=== PATIENT | male | born 1965 | race Caucasian/White ===

== ENCOUNTER 2017-01-13 16:05 | Observation (INO) | payer BC ==
--- NOTE | 2017-01-13 16:57 | CPEKG ---
Heart Rate: 78 RR Interval: 769 QRSD Interval: 88 QT Interval: 372 QTC Interval: 424 QRS Mccoy: 29 T Wave Mccoy: 21 EKG Severity - ABNORMAL ECG - EKG Impression: ATRIAL FIBRILLATION, V-RATE 66-94 Electronically Signed By: Abraham Koenig 13-Jan-2017 23:03:41
--- NOTE | 2017-01-13 16:58 | EDPHY ---
H & P Stated Complaint: SOB/LIGHTHEADED IRRIEGULAR HR Time Seen by Provider: 01/13/17 16:57 - Personal History Current Tetanus/Diphtheria Vaccine: Yes - Medical/Surgical History Hx Asthma: No Hx Chronic Respiratory Disease: No Hx Diabetes: No Hx Cardiac Disease: No Hx Renal Disease: No Hx Cirrhosis: No Hx Alcoholism: No Hx HIV/AIDS: No Hx Splenectomy or Spleen Trauma: No Other PMH: TONSILLECTOMY - Social History Smoking Status: Never smoked Constitutional: Initial Vital Signs Temperature (C) 36.7 C 01/13/17 16:19 Heart Rate 82 01/13/17 16:19 Respiratory Rate 20 01/13/17 16:19 Blood Pressure 125/80 H 01/13/17 16:19 O2 Sat (%) 97 01/13/17 16:19 O2 Delivery Mode Room Air Allergies/Adverse Reactions: No Known Allergies Allergy (Unverified 01/13/17 16:19) Home Medications: Medication Instructions Recorded NK [No Known Home Meds] 01/13/17 Medical Decision Making ED Course/Re-evaluation: CHIEF COMPLAINT: Irregular heart rhythm. HISTORY OF PRESENT ILLNESS: This patient is a 51 year old male arriving with his brother complaining of an irregular heart rhythm onset earlier today. He is visiting from [place], and arrived Thursday afternoon. He has been staying at [address]. He states he comes out to [place] to work on his brother's house in [place] for 3-4 days at a time fairly often. He endorses having had a strange feeling in his stomach on previous visits, and he threw up in the middle of the night last night. His heart feels like it is "bubbling" when he feels this sensation, and he has associated fatigued. He has had similar symptoms before on the [facility], which have often seemed stress related. Usually his symptoms do not last more than a few hours. He denies headache, chest pain, shortness of breath, or other associated symptoms. REVIEW OF SYSTEMS: A 10 point review of systems was performed and is negative with the exception of the elements mentioned in the history of present illness. PHYSICAL EXAM: HR, BP, O2 Sat, RR. Temp noted General Appearance: Alert, well hydrated, appropriate, and non-toxic appearing. Head: Atraumatic without scalp tenderness or obvious injury Eyes: Pupils equal, round, reactive to light and accommodation, EOMI, no trauma , no injection. Ears: Clear bilaterally, no perforation, normal landmarks Nose: Atraumatic, no rhinorrhea, clear. Throat: There is no erythema or exudates, no lesions, normal tonsils, mucus membranes moist. Neck: Supple, 2+ carotid upstroke, nontender, no lymphadenopathy. Respiratory: No retractions, no distress, no wheezes, and no accessory muscle use. Lungs are clear to auscultation bilaterally. Cardiovascular: Regular rate and rhythm, no murmurs, rubs, or gallops. Bilateral carotid, radial, dorsalis pedis, and posterior tibial pulses intact. Good capillary refill all extremities. Gastrointestinal: Abdomen is soft, nontender, non-distended, no masses, no rebound, no guarding, no peritoneal signs. Musculoskeletal: Normal active ROM of all extremities, atraumatic. Neurological: Alert, appropriate, and interactive. Nonfocal neuro exam. Skin: No rashes, good turgor, no nodules on palpation. Past medical history: Denies Past surgical history: Tonsillectomy (7 y/o) Family history: One brother has had history of myocardial infarction. Social history: Brother at bedside. Has six brothers. DIAGNOSTICS/PROCEDURES/CRITICAL CARE TIME: 16:55 The 12 lead EKG was interpreted by myself. See hard copy and/or "tracemaster" electronic copy for interpretation. Atrial fibrillation, ventricular rate 78. 20:40 The 12 lead EKG was interpreted by myself. See hard copy and/or "tracemaster" electronic copy for interpretation. Sinus rhythm, rate 84. DIFFERENTIAL DIAGNOSIS: The differential diagnosis for the patient's narrow complex tachycardia included but was not limited to various causes of sinus tachycardia such as dehydration and medicines, SVT, atrial flutter, atrial fibrillation, pulmonary causes. MEDICAL DECISION MAKIN51 year old male presents with new-onset atrial fibrillation. He admits to feeling poorly since arrival in [place] Thursday, four days ago. Plan to admit for management of atrial fibrillation. As the patient has likely been in this rhythm for some time and he lives out of state, I do not recommend cardioversion at this time. Plan for labs including CBC, chemistries, BNP, Troponin. 18:[address] Yates, corporate consultant. Plan to administer 80mg subcutaneous Lovenox. 20:41 Patient is in sinus rhythm. Plan to proceed with admission for continued evaluation. - Data Points Laboratory Results: Laboratory Results 01/13/17 18:35 01/13/17 17:05 01/13/17 01/13/17 01/13/17 18:35 17:05 17:05 WBC 7.59 10^3/uL 10^3/uL TNP (3.80-9.50) RBC 4.42 10^6/uL 10^6/uL TNP (4.40-6.38) Hgb 14.9 g/dL g/dL TNP (13.7-17.5) Hct 42.8 % % TNP (40.0-51.0) MCV 96.8 fL fL TNP (81.5-99.8) MCH 33.7 pg pg TNP (27.9-34.1) MCHC 34.8 g/dL g/dL TNP (32.4-36.7) RDW 12.0 % % TNP (11.5-15.2) Plt Count 222 10^3/uL 10^3/uL TNP (150-400) MPV 11.1 fL fL TNP (8.7-11.7) Neut % (Auto) 50.8 % % TNP (39.3-74.2) Lymph % (Auto) 32.8 % % TNP (15.0-45.0) [place] % (Auto) 11.9 % % TNP (4.5-13.0) Eos % (Auto) 3.3 % % TNP (0.6-7.6) Baso % (Auto) 1.1 % % TNP (0.3-1.7) Nucleat RBC Rel Count 0.0 % % TNP (0.0-0.2) Absolute Neuts (auto) 3.86 10^3/uL 10^3/uL TNP (1.70-6.50) Absolute Lymphs (auto) 2.49 10^3/uL 10^3/uL TNP (1.00-3.00) Absolute Monos (auto) 0.90 10^3/uL H 10^3/uL TNP (0.30-0.80) Absolute Eos (auto) 0.25 10^3/uL 10^3/uL TNP (0.03-0.40) Absolute Basos (auto) 0.08 10^3/uL 10^3/uL TNP (0.02-0.10) Absolute Nucleated RBC 0.00 10^3/uL 10^3/uL TNP (0-0.01) Immature Gran % 0.1 % % TNP (0.0-1.1) Immature Gran # 0.01 10^3/uL 10^3/uL TNP (0.00-0.10) Sodium 139 mEq/L mEq/L (134-144) Potassium 4.3 mEq/L mEq/L (3.5-5.2) Chloride 101 mEq/L mEq/L (97-110) Carbon Dioxide 26 mEq/l mEq/l (22-31) Anion Gap 12 mEq/L mEq/L (8-16) BUN 15 mg/dL mg/dL (7-23) Creatinine 0.9 mg/dL mg/dL (0.7-1.3) Estimated GFR > 60 Glucose 95 mg/dL mg/dL (70-100) Calcium 10.0 mg/dL mg/dL (8.5-10.4) Total Bilirubin 0.8 mg/dL mg/dL (0.1-1.4) AST 35 IU/L IU/L (17-59) ALT 42 IU/L IU/L (21-72) Alkaline Phosphatase 56 IU/L IU/L (38-126) Troponin I < 0.012 ng/mL ng/mL (0.000-0.034) NT-Pro-B Natriuret Pep 1390 pg/mL H pg/mL (0-125) Total Protein 8.0 g/dL g/dL (6.3-8.2) Albumin 4.9 g/dL g/dL (3.5-5.0) Medications Given: Discontinued Medications Enoxaparin Sodium (Lovenox) 80 mg SC EDNOW ONE Stop: 01/13/17 18:58 Last Admin: 01/13/17 20:46 Dose: 80 mg Departure - Departure Disposition: [facility] Acute Clinical Impression: Atrial fibrillation Qualifiers: Atrial fibrillation type: unspecified Qualified Code(s): I48.91 - Unspecified atrial fibrillation Condition: Fair Report Scribed for: Abraham Koenig Report Scribed by: Donna Rao Date of Report: 01/13/17 Time of Report: 19:12
[2017-01-13 17:55] LABS: ALANINE AMINOTRANSFERASE 42 IU/L (21-72); ALBUMIN 4.9 g/dL (3.5-5.0); ALKALINE PHOSPHATASE 56 IU/L (38-126); ANION GAP 12 mEq/L (8-16); ASPARTATE AMINOTRANSFERASE 35 IU/L (17-59); BILIRUBIN,TOTAL 0.8 mg/dL (0.1-1.4); CARBON DIOXIDE 26 mEq/l (22-31); CHLORIDE 101 mEq/L (97-110); CREATININE 0.9 mg/dL (0.7-1.3); GLOMERULAR FILTRATION RATE > 60; GLUCOSE 95 mg/dL (70-100); POTASSIUM 4.3 mEq/L (3.5-5.2); SODIUM 139 mEq/L (134-144)
[2017-01-13 18:07] LABS: TROPONIN I < 0.012 ng/mL (0.000-0.034)
[2017-01-13 18:46] LABS: % IMMATURE GRANULYOCYTES 0.1 % (0.0-1.1); ABSOLUTE IMMATURE GRANULOCYTES 0.01 10^3/uL (0.00-0.10); ADD DIFF? NO; ADD MORPH? NO; ADD SCAN? NO; ATYPICAL LYMPHOCYTE FLAG 0 (0-99); FRAGMENT RBC FLAG 0 (0-99); HEMATOCRIT 42.8 % (40.0-51.0); HEMOGLOBIN 14.9 g/dL (13.7-17.5); LEFT SHIFT FLG 0 (0-99); LIPEMIA HEMOLYSIS FLAG 90 (0-99); MEAN CELL HEMOGLOBIN 33.7 pg (27.9-34.1); MEAN CELL HEMOGLOBIN CONCENTR. 34.8 g/dL (32.4-36.7); MEAN CELL VOLUME 96.8 fL (81.5-99.8); MEAN PLATELET VOLUME 11.1 fL (8.7-11.7); PLATELET CLUMPS FLAG 0 (0-99); PLATELET COUNT 222 10^3/uL (150-400); RED BLOOD CELL COUNT 4.42 10^6/uL (4.40-6.38)
[2017-01-13] MEDS ORDERED: ENOXAPARIN 80 MG/0.8 ML SYR SC ONE (18:57)
--- NOTE | 2017-01-13 20:42 | CPEKG ---
Heart Rate: 84 RR Interval: 714 P-R Interval: 148 QRSD Interval: 96 QT Interval: 372 QTC Interval: 440 P Dunn: 77 QRS Dunn: 19 T Wave Dunn: 29 EKG Severity - NORMAL ECG - EKG Impression: SINUS RHYTHM Electronically Signed By: Abraham Koenig 13-Jan-2017 23:03:41
[2017-01-14] MEDS ORDERED: ONDANSETRON 4 MG/2 ML VIAL IVP PRN (01:22)
[2017-01-14] MEDS ORDERED: ACETAMINOPHEN 325 MG TAB PO PRN (01:22)
[2017-01-14] MEDS ORDERED: ONDANSETRON DISINTEGRATING 4 MG TAB PO PRN (01:22)
--- NOTE | 2017-01-14 04:27 | PDGENHP ---
History and Physical - Chief Complaint Palpitations - History of Present Illness 51 yo M with no PMHx on no medications presents with 1 day of palpitations and fatigue. Patient states that he has been having this problem on and off for several years but has never sought medical care. He is visiting family from [place] , and usually gets these symptoms when he comes to altitude, and especially when he drinks alcohol like he did last night. He denies chest pain or shortness of breath. Patient's initial ECG was in rate controlled afib. By the time of my evaluation, patient has spontaneously converted to NSR. History Information - Allergies/Home Medication List Allergies/Adverse Reactions: No Known Allergies Allergy (Unverified 01/13/17 16:19) Home Medications: NK [No Known Home Meds] 01/13/17 [Last Taken Unknown] I have personally reviewed and updated: family history, medical history - Past Medical History no pertinent PMH - Surgical History Reports: no pertinent surgical hx - Family History Positive for: CAD - Social History Smoking Status: Never smoked Alcohol Use: Other (2-3 beers nightly) Drug Use: None Review of Systems Review of Systems: ROS: 10pt was reviewed & negative except for what was stated in HPI & below Physical Exam Physical Exam: Temp Pulse Resp BP Pulse Ox 36.6 C 78 14 118/68 95 01/14/17 03:49 01/14/17 03:49 01/14/17 03:49 01/14/17 03:49 01/14/17 03:49 Constitutional: no apparent distress, appears nourished Eyes: PERRL, EOMI Ears, Nose, Mouth, Throat: moist mucous membranes, hearing normal Cardiovascular: regular rate and rhythym, no murmur, rub, or gallop Respiratory: no respiratory distress, clear to auscultation Gastrointestinal: normoactive bowel sounds, soft, non-tender abdomen Skin: warm, normal color Musculoskeletal: full muscle strength, no muscle tenderness Neurologic: AAOx3, CN II-XII Intact Psychiatric: interacting appropriately, not anxious Lab Data & Imaging Review 01/13/17 18:35 01/13/17 17:05 WBC 7.59 10^3/uL (3.80-9.50) 01/13/17 18:35 RBC 4.42 10^6/uL (4.40-6.38) 01/13/17 18:35 Hgb 14.9 g/dL (13.7-17.5) 01/13/17 18:35 Hct 42.8 % (40.0-51.0) 01/13/17 18:35 MCV 96.8 fL (81.5-99.8) 01/13/17 18:35 MCH 33.7 pg (27.9-34.1) 01/13/17 18:35 MCHC 34.8 g/dL (32.4-36.7) 01/13/17 18:35 RDW 12.0 % (11.5-15.2) 01/13/17 18:35 Plt Count 222 10^3/uL (150-400) 01/13/17 18:35 MPV 11.1 fL (8.7-11.7) 01/13/17 18:35 Neut % (Auto) 50.8 % (39.3-74.2) 01/13/17 18:35 Lymph % (Auto) 32.8 % (15.0-45.0) 01/13/17 18:35 [place] % (Auto) 11.9 % (4.5-13.0) 01/13/17 18:35 Eos % (Auto) 3.3 % (0.6-7.6) 01/13/17 18:35 Baso % (Auto) 1.1 % (0.3-1.7) 01/13/17 18:35 Nucleat RBC Rel Count 0.0 % (0.0-0.2) 01/13/17 18:35 Absolute Neuts (auto) 3.86 10^3/uL (1.70-6.50) 01/13/17 18:35 Absolute Lymphs (auto) 2.49 10^3/uL (1.00-3.00) 01/13/17 18:35 Absolute Monos (auto) 0.90 10^3/uL (0.30-0.80) H 01/13/17 18:35 Absolute Eos (auto) 0.25 10^3/uL (0.03-0.40) 01/13/17 18:35 Absolute Basos (auto) 0.08 10^3/uL (0.02-0.10) 01/13/17 18:35 Absolute Nucleated RBC 0.00 10^3/uL (0-0.01) 01/13/17 18:35 Immature Gran % 0.1 % (0.0-1.1) 01/13/17 18:35 Immature Gran # 0.01 10^3/uL (0.00-0.10) 01/13/17 18:35 Sodium 139 mEq/L (134-144) 01/13/17 17:05 Potassium 4.3 mEq/L (3.5-5.2) 01/13/17 17:05 Chloride 101 mEq/L (97-110) 01/13/17 17:05 Carbon Dioxide 26 mEq/l (22-31) 01/13/17 17:05 Anion Gap 12 mEq/L (8-16) 01/13/17 17:05 BUN 15 mg/dL (7-23) 01/13/17 17:05 Creatinine 0.9 mg/dL (0.7-1.3) 01/13/17 17:05 Estimated GFR > 60 01/13/17 17:05 Glucose 95 mg/dL (70-100) 01/13/17 17:05 Calcium 10.0 mg/dL (8.5-10.4) 01/13/17 17:05 Total Bilirubin 0.8 mg/dL (0.1-1.4) 01/13/17 17:05 AST 35 IU/L (17-59) 01/13/17 17:05 ALT 42 IU/L (21-72) 01/13/17 17:05 Alkaline Phosphatase 56 IU/L (38-126) 01/13/17 17:05 Troponin I < 0.012 ng/mL (0.000-0.034) 01/13/17 17:05 NT-Pro-B Natriuret Pep 1390 pg/mL (0-125) H 01/13/17 17:05 Total Protein 8.0 g/dL (6.3-8.2) 01/13/17 17:05 Albumin 4.9 g/dL (3.5-5.0) 01/13/17 17:05 Visualized and Interpreted EKG results: Yes EKG additional interpertation: Initial ECG @ 1600 in Afib with HR in 70's. Follow up ECG @ 2000 in [address]R with no ST changes. Assessment & Plan Assessment: 51 yo M presents with transient atrial fibrillation. Plan: 1. Atrial fibrillation - Patient with symptoms since morning prior to admission and Afib noted on 1600 ECG. However, spontaneously converted to NSR at 1999. Suspect triggered by altitude and alcohol intake, no signs of symptoms to suggest acute pathology such as ACS or PE. Per history sounds like patient has had this problem intermittently for several years, although he has never sought medical care and therefore has not received a prior diagnosis. [id number] of 0 so no indication for anticoagulation. - S/p Lovenox in ED under instruction of Cardiology given when patient was in Afib - Will monitor on telemetry overnight and check TSH - Will consult cardiology to discuss possibility of antiarrhythmic, although the patient would prefer to stay off medication if possible - Will hold off on ordering TTE for now Diet - NPO in case he goes back in to Afib and Cardiology wants to cardiovert ( This was original plan) Code - Full Ppx - S/p Lovenox Dispo - Admit for observation
[2017-01-14 05:45] LABS: ANION GAP 11 mEq/L (8-16); CALCIUM 9.2 mg/dL (8.5-10.4); CARBON DIOXIDE 24 mEq/l (22-31); CHLORIDE 104 mEq/L (97-110); GLOMERULAR FILTRATION RATE > 60; GLUCOSE 91 mg/dL (70-100); MAGNESIUM 2.1 mg/dL (1.6-2.3); POTASSIUM 3.9 mEq/L (3.5-5.2); SODIUM 139 mEq/L (134-144)
[2017-01-14 07:37] VITALS: RESP 16; TEMP 97.7; O2SAT 97
[2017-01-14] MEDS ORDERED: ASPIRIN EC 325 MG TAB PO SCH (10:15)
[2017-01-14] MEDS ORDERED: METOPROLOL TARTRATE 25 MG TAB PO SCH (10:15)
[2017-01-14 11:20] VITALS: BP 116/79; PULSE 95
--- NOTE | 2017-01-14 12:22 | GCON ---
[f rep st] CONSULTATION CARDIOLOGY CONSULTATION REASON FOR CONSULTATION: New onset of atrial fibrillation. HISTORY OF PRESENT ILLNESS: The patient is a 51-year-old male reporting no significant cardiac history. He is resides in [place]. He is currently out in [place] helping build a vacation home up in [place]. He reports he had been in his normal state of health. He does admit that he has been binge drinking mildly while out here working on his house, and reporting that yesterday morning, waking with palpitations, shortness of breath, and significant fatigue. He reports this is the worst. He does admit that when he is out in [place], he has had similar symptoms in the past over the last 3 years, and he reports he has been noticing occasional episode of palpitations about 2-3 times a month when at home in [place], but usually subsides throughout the day. He denies any lightheadedness, near-syncope, or syncopal events. Denies any chest pressure or pain. Due to his significant fatigue symptoms at this event, he decided to come in to be further evaluated, and presented at [facility] Emergency Department. Upon arrival, it was noted that he an electrocardiogram showed that he was an atrial fibrillation , with no acute ST or T-wave abnormalities. His heart rate was rate control at 78 beats per minute. Initial laboratory studies did note a mildly elevated BNP of 1390, a troponin of less than 0.012. Dr. Koenig, who is the emergency department attending, did call Dr. Yates of our service, who recommended that the patient did receive Lovenox, but no A-V bharath agent due to his heart rate. By 8:40, the patient did self-convert into sinus rhythm. The patient was admitted to the hospital for further observation. Upon arrival, he has been on the telemetry floor, and since that time he has been per continuous cardiac monitoring. He has been in sinus rhythm, with no significant arrhythmias or pauses noted. Occasional PACs and PVCs. He reports no episodes of chest pain or shortness of breath overnight. His vital signs have been stable. Reporting no history of chest pressure or pain. Denies shortness of breath. The patient does admit over the last few days, while working on his house, he has not been keeping up with his hydration, and he is also reporting that he has increased his alcohol intake, significantly, the night before episodes started to happen. He denies any recent fevers, chills, or night sweats. Reporting really no significant medical past history. The patient's cardiac risk factors include age. He is uncertain about his cholesterol levels, denies any history of hypertension, and no family history of coronary artery disease at an early onset , and denies any family history of sudden cardiac . PAST MEDICAL HISTORY: The patient reports no significant past medical history. Does report he has not seen a physician in numerous years. PAST SURGICAL HISTORY: Denies any significant past surgery history. FAMILY HISTORY: The patient reports a paternal grandmother with a history of CAD in her late 60s. SOCIAL HISTORY: The patient resides in [place]. 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 He is , he has 2 children. His just underwent bilateral mastectomy, and has just finished chemo and radiation. He denies any illicit drug use. Does admit on a nightly basis usually 2 alcoholic beverages, and does admit that while out here of vacation he has had a significant amount more of alcohol. ALLERGIES: The patient has no known allergies. MEDICATIONS: At home, the patient reports occasional use of Janelle-D for seasonal allergies; has had not used any in the last month or so. REVIEW OF SYSTEMS: A 10-point review of systems was done on this patient. All negative, except as mentioned above. PHYSICAL EXAMINATION: GENERAL APPEARANCE: A medium built, well-groomed, male. He is alert and oriented to person, place, time, and situation. Appears to be under no acute distress. CURRENT VITAL SIGNS: Blood pressure of 104/73, heart rate of 77, saturation 97% on room air, temperature of 36.5 degrees Celsius. HEENT: Head is normocephalic. Lips and tongue are pink and moist with no signs of cyanosis. Conjunctivae are pink. NECK: Trachea is midline. +2 carotid pulses bilaterally. No auscultated bruits. No jugular vein distention. RESPIRATORY: Lungs are clear to auscultation. No rhonchi, rales or wheezes. No accessory muscle use. No intercostal muscle retraction noted. CARDIAC: Regular rate, regular rhythm, S1, S2, no S3, S4, gallops, rubs or murmur noted. ABDOMEN: Soft, nontender, bowel sounds x4 quadrants. No organomegaly. No palpable masses. SKIN: [place], warm, dry, no cyanosis, no clubbing, no peripheral edema. VASCULAR: +2 carotids bilateral, + 2 radials bilateral, +2 dorsal pedal and posterior tibial pulses bilateral. LABORATORY STUDIES: Laboratory studies drawn on admission showed a WBC of 7.59 , a hemoglobin of 14.9, a hematocrit of 42.8, platelet count 222 is noted. Total bilirubin of 0.8, AST 35, ALT 42, alkaline phosphate 56. Initial troponin less than 0.012. ProBNP was 1392, total protein 8.0, albumin 4.9. This morning's labs showed sodium of 139, potassium 3.9, chloride 104, CO2 24, BUN 19, creatinine 1.0, glucose 91, calcium 9.2, magnesium 2.1. TSH was 5.320. Currently, 2nd troponin level is pending. Admission electrocardiogram, as mentioned above. A repeated electrocardiogram was done on 01/13 at 2038 hours showing sinus rhythm, normal axis, no ST or T- wave abnormalities suggestive of ischemia. Preliminary echocardiogram done this morning showing normal LV systolic function with no wall motion abnormalities. No significant valvular heart disease. Normal chamber sizes. ASSESSMENT AND PLAN: 1. Paroxysmal atrial fibrillation: This is the patient's 1st documented episode of paroxysmal atrial fibrillation, with symptoms of fatigue, shortness of breath. Denies any chest pressure or pain. Echocardiogram showing no wall motion abnormalities, normal ejection fraction, normal chamber sizes. This happened in the setting when he was at significant altitude, which he lives at close to sea [place], and potential dehydration and significant alcohol intake. The patient also reports that he has occasional palpitations at home that are happening 1-2 times a week. He is currently in sinus rhythm. I have suggested that he start a low-dose beta-chino of metoprolol tartrate at 12.5 mg p.o. b.i.d. I have encouraged him to increase his hydration, decrease his alcohol intake, and avoid binge drinking. We have also discussed that the patient does admit that he snores significantly, and I do think it would be valid as an outpatient that the patient be further evaluated for possible sleep apnea. His TSH level is noted to be mildly high, has had normal electrolyte and renal function and no anemia. Depending on the result of his 2nd troponin level, I do not think he will need to undergo stress testing since he has had no signs symptoms suggestive of ischemia, negative troponins, and normal LV wall motion. I have encouraged him to establish a primary care in [place], and follow up with Cardiology within the next few weeks. I have also asked that the echocardiogram technicians provide the patient with a CD of his echocardiogram to take home with him. As for anticoagulation, the patient was noted to have a CHADS-VASc score of 0. I would recommend that he take a full-strength aspirin 325 mg on a daily basis. 2. Elevated BNP: Noted to have an elevated BNP on arrival. The patient denies any shortness of breath at this time since converting back to sinus rhythm, probably due to his atrial fibrillation. He denies any symptoms suggestive of pulmonary embolism. Again, will plan on treating his atrial fibrillation as mentioned above. 3. Elevated TSH: The TSH was noted to be mildly high, and I have recommended that he follow up with a primary care provider whence going home for further evaluation. I have discussed my findings with Dr. Cortes and Dr. Stephens of hospitalist services. Thank you for this consultation. /[id number]/MODL MTDD
--- NOTE | 2017-01-14 12:23 | ASMTCMCOM ---
CM Note CM Note Notes: Reviewed chart and spoke w/RN. Pt will dc home independantly when med stable. Date Signed: 01/14/2017 12:22 PM Electronically Signed By:Haylie Hector RN
--- NOTE | 2017-01-14 13:26 | ECHO ---
[id number] + + [address] : : [place] [address] : : [phone] + + Adult Echocardiographic Report + ------+ :Name: GAIL GARRETT LStudy Date: 01/14/2017 09:06 AM : : Hospital Admission Number: [id number] Barbara n: 204: :: 1965 Gender: Male : :Age: 51 yrs Race: WH : :Reason For Study: Atrial Fibrillation : + ------+ MMode/2D Measurements & Calculations IVSd: 1.2 cm LVIDd: 4.3 cm EDV(Teich): Ao root diam: 83.6 ml 3.2 cm LA dimension: 3.8 cm LVLd ap4: 7.8 cm SV(MOD-sp4): EDV(MOD-sp4): 52.0 ml 75.0 ml LVLs ap4: 6.6 cm ESV(MOD-sp4): 23.0 ml EF(MOD-sp4): 69.3 % Normal Measurement Values: + + :LVIDd (3.5-5.7cm) IVSd (0.6-1.1cm) LVPWd (0.6-1.1cm) Aortic Root (2.0-3.7cm)Left Atrium (1.5-4.0cm): :LV Vol(d) (76-115ml) LV Vol(s) (29-48ml) Ejec Fraction (50-65%)PV Juan Diego (0.6- 1.2m/s) TV Juan Diego (0.4-1.0m/s) : :MV E [place] (0.8-1.0m/s)MV A [place] (0.3-1.0m/s)LVOT [place] (0.7-1.2m/s) Asc Ao Juan Diego ( 0.9-1.8m/s) : + + Doppler Measurements & Calculations MV E max juan diego: 48.4 cm/sec Ao V2 max: 119.4 cm/sec MV A max juan diego: 44.9 cm/sec Ao max P.7 mmHg MV E/A: 1.1 Left Ventricle The left ventricle is normal in size. There is normal left ventricular wall thickness. Left ventricular systolic function is normal. Ejection Fraction = 60-65%. No regional wall motion abnormalities noted. Right Ventricle The right ventricle is normal in size and function. Atria The left atrial size is normal. Right atrial size is normal. The interatrial septum is intact with no evidence for an atrial septal defect. Mitral Valve The mitral valve is normal in structure and function. There is no evidence of mitral valve prolapse. There is no mitral valve stenosis. There is mild mitral regurgitation. Tricuspid Valve Normal tricuspid valve. There is trace tricuspid regurgitation. Aortic Valve The aortic valve is trileaflet. The aortic valve opens well. There is no aortic stenosis. Trace aortic regurgitation. Pulmonic Valve The pulmonic valve is normal in structure and function. There is no pulmonic valvular regurgitation. Great Vessels The aortic root is normal size. Pericardium/Pleural There is no pericardial effusion. Conclusion A complete two-dimensional transthoracic echocardiogram was performed (2D, M-mode, Doppler and color flow Doppler). Left ventricular systolic function is normal. Ejection Fraction = 60-65%. There is mild mitral regurgitation. There is trace tricuspid regurgitation. Trace aortic regurgitation. Final Reading Physician: Hardy Sainz signed on 01/14/2017 01:26 PM Ordering Physician: Elias Guerra Performed By: Ruchi Melvin RDCS
--- NOTE | 2017-01-14 14:59 | ASDISCHSUM ---
Discharge Information Plan Status:Home with No Needs Medically Cleared to Leave: Discharge Date:01/14/2017 12:54 PM CM D/C Disposition: ADT D/C Disposition:Home, Routine, Self-Care Projected Discharge Date:01/14/2017 12:54 PM Transportation at D/C: Discharge Delay Reason: Follow-Up Date:01/14/2017 12:54 PM Discharge Slot: Final Diagnosis: Placement Information Patient Contact Information Contact Name:JOE Relationship: Address:[address] Work Phone: City:[place] Alternate Phone: State/Zip Code:[place] [address] Email: Financial Information Financial Class:HMO and PPO Plans Primary Plan Desc: OUT OF STATE PPO Primary Plan Number:[id number] Secondary Plan Desc: Secondary Plan Number: Assessment Information BC CM Progress Note CM Note CM Note Notes: Reviewed chart and spoke w/RN. Pt will dc home independantly when med stable. Date Signed: 01/14/2017 12:22 PM Electronically Signed By:Haylie Hector RN Intervention Information
--- NOTE | 2017-01-15 03:33 | GDS ---
[f rep st] DISCHARGE SUMMARY DISCHARGE DIAGNOSIS: Atrial fibrillation. HISTORY OF PRESENT ILLNESS: A 51-year-old male with no past medical history, on no medications, presented with 1 day of palpitations and fatigue. He says he has had similar symptoms on and off for several years, but never sought medical care. He is visiting here from [place], and usually gets these symptoms more prominently when he comes to altitude. He also notes especially when he drinks alcohol like he did night prior. He denies chest pain or shortness of breath. His initial EKG showed rate controlled atrial fibrillation. By the time of hospitalist evaluation, he had converted to normal sinus rhythm. HOSPITAL COURSE: 1. Paroxysmal atrial fibrillation: This is his 1st documented episode with symptoms. He had an unremarkable echocardiogram. TSH was mildly high. He had negative troponins. He will be discharged on metoprolol 12.5 mg twice daily and a full-dose aspirin with a CHADS2-VASc score 0. Highly recommended that he get a primary care physician in [place] along with a spd manager. Elevated BNP 1390, but no evidence of volume overload. Suspect this was due to his atrial fibrillation. DISPOSITION: Patient is stable for discharge. DISCHARGE MEDICATIONS: New medication: Metoprolol, full-dose aspirin. PHYSICAL EXAMINATION: VITAL SIGNS: On discharge, temperature 36.5 blood pressure 104/73, heart rate 77, O2 saturation 97% on room air. GENERAL: Well- appearing male in no acute distress. HEENT: PERRLA. EOMI. Oropharynx clear. CV: Regular rate and rhythm. No murmurs, gallops, rubs. no edema. LUNGS: Clear. No crackles or wheezing. ABDOMEN: Soft, nontender, nondistended. Positive bowel sounds. : No Graham. MUSCULOSKELETAL: 5/5 upper and lower extremity strength. NEURO: 2 through 12 intact. PSYCH: Alert, oriented x3. /[id number]/MODL MTDD
== END 2017-01-14 12:54 | disposition home or self-care (01) ==
LOC: F2W 01-14 00:56
PROVIDERS: ADMIT Hospitalist; ATTEND Hospitalist
DX: I48.0 Paroxysmal atrial fibrillation (principal); R00.2 Palpitations; R53.83 Other fatigue
CPT/HCPCS: 93005; 93306; G0378; J1650